=== PATIENT | female | born 1955 | race African-American/Black ===

== ENCOUNTER → 2016-06-01 | Outpatient (CLI) | payer MEDICARE, MEDICAID | LOC: RAD 11:02 | PROVIDERS: ATTEND Nurse Practitioner Family | DX: R56.9 Unspecified convulsions (principal); R51 Headache; G47.33 Obstructive sleep apnea (adult) (pediatric) | CPT/HCPCS: 70553; A9577 ==

== ENCOUNTER → 2016-06-14 | Outpatient (CLI) | payer MEDICARE, MEDICAID ==
[2016-06-14 16:40] LABS: FREE T3 3.48 pg/mL (2.77-5.27)
== END ==
LOC: OD 13:58
PROVIDERS: ATTEND Specialist
DX: E03.9 Hypothyroidism, unspecified (principal); E16.2 Hypoglycemia, unspecified
CPT/HCPCS: 36415; 84439; 84443; 84481

== ENCOUNTER → 2016-07-18 | Outpatient (CLI) | payer MEDICARE, MEDICAID | LOC: WI 13:45 | PROVIDERS: ATTEND Physician Assistant | DX: Z78.0 Asymptomatic menopausal state (principal) | CPT/HCPCS: 77080 ==

== ENCOUNTER → 2016-07-25 | Outpatient (CLI) | payer MEDICARE, MEDICAID | LOC: RAD 09:52 | PROVIDERS: ATTEND Obstetrics & Gynecology | DX: R10.2 Pelvic and perineal pain (principal) | CPT/HCPCS: 74177; 82565 ==

== ENCOUNTER 2016-09-04 12:25 | Emergency (ER) | payer MEDICARE, MEDICAID ==
[2016-09-04] MEDS ORDERED: ACETAMINOPHEN 325 MG TABLET PO ONE (12:45)
[2016-09-04] MEDS ORDERED: MECLIZINE HCL 25 MG TABLET PO ONE (12:45)
--- NOTE | 2016-09-04 12:46 | ER Document Report ---
ED Medical Screen (RME) - General Chief Complaint: Dizziness Stated Complaint: HEADACHE, DIZZINESS Time seen by provider: 12:45 Mode of Arrival: Ambulatory Information source: Patient Notes: This is a 61-year-old female with a history of hypertension and asthma and migraines who presents to the emergency room with a headache and dizziness. Patient states she awoke with symptoms. She denies any focal weakness, slurred speech or facial asymmetry. Allergies: Ibuprofen, Aleve, morphine, oxycodone. Primary care physician: Rain cardozo Past surgical history: Cholecystectomy TRAVEL OUTSIDE OF THE [place] IN LAST 30 DAYS: No - Related Data Allergies/Adverse Reactions: aspirin [Aspirin] Allergy (Mild, Verified 09/04/16 12:37) Hives ibuprofen [Ibuprofen] Allergy (Mild, Verified 09/04/16 12:37) nausea/vomiting metaxalone [From Skelaxin] Allergy (Mild, Verified 09/04/16 12:37) Hallucinations morphine [Morphine] Allergy (Mild, Verified 09/04/16 12:37) Hallucinations naproxen [From Naprosyn] Allergy (Mild, Verified 09/04/16 12:37) Dizziness oxycodone [Oxycodone] Allergy (Mild, Verified 09/04/16 12:37) Hallucinations oxycodone HCl [From Percocet] Allergy (Mild, Verified 09/04/16 12:37) Hallucinations Past Medical History - Social History Frequency of alcohol use: None Drug Abuse: None - Past Medical History Cardiac Medical History: Reports: Hx Hypercholesterolemia, Hx Hypertension - medicated Denies: Hx Heart Attack Pulmonary Medical History: Reports: Hx Asthma - medicated prn Neurological Medical History: Reports: Hx Migraine. Denies: Hx Cerebrovascular Accident, Hx Seizures Renal/ Medical History: Denies: Hx Peritoneal Dialysis GI Medical History: Denies: Hx Hepatitis, Hx Hiatal Hernia, Hx Ulcer Infectious Medical History: Denies: Hx Hepatitis Past Surgical History: Reports: Hx Cholecystectomy. Denies: Hx Hysterectomy, Hx Mastectomy, Hx Open Heart Surgery, Hx Pacemaker Physical Exam - Vital signs Vitals: Temp Pulse Resp BP Pulse Ox 97.9 F 73 20 122/69 97 09/04/16 12:38 09/04/16 12:38 09/04/16 12:38 09/04/16 12:38 09/04/16 12:38 Course - Vital Signs Vital signs: Temp Pulse Resp BP Pulse Ox 97.9 F 73 20 122/69 97 09/04/16 12:38 09/04/16 12:38 09/04/16 12:38 09/04/16 12:38 09/04/16 12:38
[2016-09-04 13:15] LABS: ABSOLUTE MONOCYTES (AUTO) 0.3 10^3/uL (0.1-1.4); ABSOLUTE NEUT (AUTO) 1.8 10^3/uL (1.7-8.2); BASOPHILS % (AUTO) 1.1 % (0-2); EOSINOPHILS % (AUTO) 0.8 % (0-6); HEMATOCRIT 40.4 % (36.0-47.0); HEMOGLOBIN 13.3 g/dL (12.0-15.5); HGB HCT DIFFERENCE -0.5; LYMPHOCYTES % (AUTO) 31.5 % (13-45); MEAN CORPUSCULAR HEMOGLOBIN 29.2 pg (27.0-33.4); MEAN CORPUSCULAR HGB CONC 32.9 g/dL (32.0-36.0); MEAN CORPUSCULAR VOLUME 89 fl (80-97); MONOCYTES % (AUTO) 8.6 % (3-13); RED BLOOD COUNT 4.56 10^6/uL (3.72-5.28); RED CELL DISTRIBUTION WIDTH 13.5 % (11.5-14.0)
[2016-09-04 13:27] LABS: APPEARANCE,URINE SLIGHTLY-CLOUDY; BILIRUBIN,URINE NEGATIVE (NEGATIVE); GLUCOSE, URINE NEGATIVE (NEGATIVE); KETONES,URINE NEGATIVE (NEGATIVE); LEUKOCYTE ESTERASE,URINE TRACE (NEGATIVE); NITRITE,URINE NEGATIVE (NEGATIVE); PROTEIN,URINE NEGATIVE (NEGATIVE); URINE SPECIFIC GRAVITY 1.026; UROBILINOGEN,URINE NEGATIVE mg/dL (<2.0)
[2016-09-04 13:31] LABS: ALANINE AMINOTRANSFERASE 32 U/L (9-52); ALBUMIN 3.9 g/dL (3.5-5.0); ALKALINE PHOSPHATASE 98 U/L (38-126); ANION GAP 11 (5-19); ASPARTATE AMINO TRANSFERASE 22 U/L (14-36); BILIRUBIN,DIRECT 0.3 mg/dL (0.0-0.4); BILIRUBIN,TOTAL 0.4 mg/dL (0.2-1.3); BLOOD UREA NITROGEN 16 mg/dL (7-20); CALCIUM 9.6 mg/dL (8.4-10.2); CARBON DIOXIDE 24 mmol/L (22-30); CHLORIDE 108 mmol/L (98-107); CREATININE RESULT 0.74 mg/dL (0.52-1.25); GLUCOSE 85 mg/dL (75-110); POTASSIUM 4.3 mmol/L (3.6-5.0); SODIUM 143.2 mmol/L (137-145); TOTAL PROTEIN 6.8 g/dL (6.3-8.2)
--- NOTE | 2016-09-04 15:21 | ER Document Report ---
ED General - General Chief Complaint: Dizziness Stated Complaint: HEADACHE, DIZZINESS Mode of Arrival: Ambulatory Information source: Patient Notes: 61-year-old female with a history of hypertension and asthma and migraines who presents to the emergency room with a headache and dizziness. Patient states she awoke with symptoms. She denies any focal weakness, slurred speech or facial asymmetry. Patient denies any fevers or chills, denies any nausea or vomiting. Patient notes symptoms worsened with movement of the head Patient notes headache is similar to her previous headaches denies any new concerns with a headache TRAVEL OUTSIDE OF THE [place] IN LAST 30 DAYS: No - HPI Onset: This morning Onset/Duration: Persistent Quality of pain: Achy Severity: Mild Pain Level: 1 Associated symptoms: Headache, Other Exacerbated by: Movement Relieved by: Denies Similar symptoms previously: Yes Recently seen / treated by doctor: Yes - Related Data Allergies/Adverse Reactions: aspirin [Aspirin] Allergy (Mild, Verified 09/04/16 12:37) Hives ibuprofen [Ibuprofen] Allergy (Mild, Verified 09/04/16 12:37) nausea/vomiting metaxalone [From Skelaxin] Allergy (Mild, Verified 09/04/16 12:37) Hallucinations morphine [Morphine] Allergy (Mild, Verified 09/04/16 12:37) Hallucinations naproxen [From Naprosyn] Allergy (Mild, Verified 09/04/16 12:37) Dizziness oxycodone [Oxycodone] Allergy (Mild, Verified 09/04/16 12:37) Hallucinations oxycodone HCl [From Percocet] Allergy (Mild, Verified 09/04/16 12:37) Hallucinations Past Medical History - General Information source: Patient - Social History Smoking Status: Never Smoker Cigarette use (# per day): No Chew tobacco use (# tins/day): No Smoking Education Provided: No Frequency of alcohol use: None Drug Abuse: None Family History: Reviewed & Not Pertinent Patient has suicidal ideation: No Patient has homicidal ideation: No - Past Medical History Cardiac Medical History: Reports: Hx Hypercholesterolemia, Hx Hypertension - medicated Denies: Hx Heart Attack Pulmonary Medical History: Reports: Hx Asthma - medicated prn Neurological Medical History: Reports: Hx Migraine. Denies: Hx Cerebrovascular Accident, Hx Seizures Renal/ Medical History: Denies: Hx Peritoneal Dialysis GI Medical History: Denies: Hx Hepatitis, Hx Hiatal Hernia, Hx Ulcer Infectious Medical History: Denies: Hx Hepatitis Past Surgical History: Reports: Hx Cholecystectomy. Denies: Hx Hysterectomy, Hx Mastectomy, Hx Open Heart Surgery, Hx Pacemaker Review of Systems - Review of Systems Notes: REVIEW OF SYSTEMS: CONSTITUTIONAL : Denies fever, chills, or sweats. Denies recent illness. EENT: Denies eye, ear, throat, or mouth pain or symptoms. Denies nasal or sinus congestion or discharge. Denies throat, tongue, or mouth swelling or difficulty swallowing. CARDIOVASCULAR: Denies chest pain. Denies palpitations or racing or irregular heart beat. Denies ankle edema. RESPIRATORY: Denies cough, cold, or chest congestion. Denies shortness of breath, difficulty breathing, or wheezing. GASTROINTESTINAL: Denies abdominal pain or distention. Denies nausea, vomiting , or diarrhea. Denies blood in vomitus, stools, or per rectum. Denies black, tarry stools. Denies constipation. GENITOURINARY: Denies difficulty urinating, painful urination, burning, frequency, blood in urine, or discharge. FEMALE GENITOURINARY: Denies vaginal bleeding, heavy or abnormal periods, irregular periods. Denies vaginal discharge or odor. MUSCULOSKELETAL: Denies back or neck pain or stiffness. Denies joint pain or swelling. SKIN: Denies rash, lesions or sores. HEMATOLOGIC : Denies easy bruising or bleeding. LYMPHATIC: Denies swollen, enlarged glands. NEUROLOGICAL: Admits to vertigo and headache PSYCHIATRIC: Denies anxiety or stress. Denies depression, suicidal ideation, or homicidal ideation. ALL OTHER SYSTEMS REVIEWED AND NEGATIVE. Dictation was performed using [employer] voice recognition software PHYSICAL EXAMINATION: GENERAL: Well-appearing, well-nourished and in no acute distress. HEAD: Atraumatic, normocephalic. EYES: Pupils equal round and reactive to light, extraocular movements intact, conjunctiva are normal. ENT: Nares patent, oropharynx clear without exudates. Moist mucous membranes. NECK: Normal range of motion, supple without lymphadenopathy LUNGS: Breath sounds clear to auscultation bilaterally and equal. No wheezes rales or rhonchi. HEART: Regular rate and rhythm without murmurs ABDOMEN: Soft, nontender, nondistended abdomen. No guarding, no rebound. No masses appreciated. Female : deferred Musculoskeletal: Normal range of motion, no pitting or edema. No cyanosis. NEUROLOGICAL: Cranial nerves grossly intact. Normal speech, normal gait. Normal sensory, motor exams PSYCH: Normal mood, normal affect. SKIN: Warm, Dry, normal turgor, no rashes or lesions noted. Physical Exam - Vital signs Vitals: Temp Pulse Resp BP Pulse Ox 97.9 F 73 20 122/69 97 09/04/16 12:38 09/04/16 12:38 09/04/16 12:38 09/04/16 12:38 09/04/16 12:38 Course - Re-evaluation Re-evalutation: 09/04/16 15:21 Patient was treated for her symptoms states she feels much better, I will watch her a bit longer as she otherwise looks extremely well. Workup noted no acute abnormality 09/04/16 15:56 Patient notes symptoms have completely resolved she wishes to be discharged home , patient will be discharged with the understanding that she return immediately if there are any other concerns or any other issues After performing a Medical Screening Examination, I estimate there is LOW risk for INTRACRANIAL HEMORRHAGE, ISCHEMIC CVA, MALIGNANT DYSRHYTHMIA, ACUTE CORONARY SYNDROME, MENINGITIS, PULMONARY EMBOLISM, or SEPSIS thus I consider the discharge disposition reasonable. I have reevaluated this patient multiple times and no significant life threatening changes are noted. The patient and I have discussed the diagnosis and risks, and we agree with discharging home with close follow-up with the understanding that symptoms and presentations can change. We also discussed returning to the Emergency Department immediately if new or worsening symptoms occur. We have discussed the symptoms which are most concerning (e.g., changing or worsening pain, weakness, vomiting, fever) that necessitate immediate return. - Vital Signs Vital signs: Temp Pulse Resp BP Pulse Ox 97.9 F 73 20 122/69 97 09/04/16 12:38 09/04/16 12:38 09/04/16 12:38 09/04/16 12:38 09/04/16 12:38 - Laboratory Result Diagrams: 09/04/16 12:45 09/04/16 12:45 Laboratory results interpreted by me: 09/04/16 09/04/16 09/04/16 12:45 12:45 12:45 WBC 3.0 L Chloride 108 H Ur Leukocyte Esterase TRACE H Discharge - Discharge Clinical Impression: Dizziness Migraine headache Qualifiers: Migraine type: unspecified Status migrainosus presence: without status migrainosus Intractability: not intractable Qualified Code(s): G43.909 - Migraine, unspecified, not intractable, without status migrainosus Condition: Stable Disposition: HOME, SELF-CARE Instructions: Dizziness ([facility]) Prescriptions: Meclizine HCl [Antivert 25 mg Tablet] 25 mg PO TID PRN #21 tablet PRN Reason: Referrals: MARISABEL NEWTON PA-C [Primary Care Provider] - Follow up in 3-5 days
[2016-09-04 16:44] VITALS: BP 116/73
== END 2016-09-04 16:48 | disposition home or self-care (01) ==
LOC: ER 12:25
DX: R42 Dizziness and giddiness (principal); G43.909 Migraine, unspecified, not intractable, without status migrainosus; I10 Essential (primary) hypertension; J45.909 Unspecified asthma, uncomplicated; E78.00 Pure hypercholesterolemia, unspecified; Z88.6 Allergy status to analgesic agent; Z90.49 Acquired absence of other specified parts of digestive tract
CPT/HCPCS: 99284; 36415; 85025; 80053; 81001; A9270 ×2

== ENCOUNTER 2016-10-01 18:15 | Emergency (ER) | payer MEDICARE, MEDICAID ==
--- NOTE | 2016-10-01 19:03 | ER Document Report ---
ED Medical Screen (RME) - General Mode of Arrival: Wheelchair Information source: Patient TRAVEL OUTSIDE OF THE [place] IN LAST 30 DAYS: No - HPI Patient complains to provider of: pain in both legs; vaginal bleeding Onset: Last week - pt. with several day h/o pain and swelling in both legs ; also vaginal bleeding which started last week after not having a menstral period for many years <GUSTAVO COLON - Last Filed: 10/01/16 19:01> <KATHARINA SHRESTHA - Last Filed: 10/01/16 22:23> - General Chief Complaint: Vaginal Bleeding Stated Complaint: LEG PAIN Time Seen by Provider: 10/01/16 18:57 - Related Data Allergies/Adverse Reactions: aspirin [Aspirin] Allergy (Mild, Verified 10/01/16 18:42) Hives ibuprofen [Ibuprofen] Allergy (Mild, Verified 10/01/16 18:42) nausea/vomiting metaxalone [From Skelaxin] Allergy (Mild, Verified 10/01/16 18:42) Hallucinations morphine [Morphine] Allergy (Mild, Verified 10/01/16 18:42) Hallucinations naproxen [From Naprosyn] Allergy (Mild, Verified 10/01/16 18:42) Dizziness oxycodone [Oxycodone] Allergy (Mild, Verified 10/01/16 18:42) Hallucinations oxycodone HCl [From Percocet] Allergy (Mild, Verified 10/01/16 18:42) Hallucinations Past Medical History - Social History Chew tobacco use (# tins/day): No Frequency of alcohol use: None Drug Abuse: None - Past Medical History Cardiac Medical History: Reports: Hx Hypercholesterolemia, Hx Hypertension - medicated Denies: Hx Heart Attack Pulmonary Medical History: Reports: Hx Asthma - medicated prn Neurological Medical History: Reports: Hx Migraine. Denies: Hx Cerebrovascular Accident, Hx Seizures Renal/ Medical History: Denies: Hx Peritoneal Dialysis GI Medical History: Denies: Hx Hepatitis, Hx Hiatal Hernia, Hx Ulcer Infectious Medical History: Denies: Hx Hepatitis Past Surgical History: Reports: Hx Cholecystectomy. Denies: Hx Hysterectomy, Hx Mastectomy, Hx Open Heart Surgery, Hx Pacemaker - Immunizations Hx Diphtheria, Pertussis, Tetanus Vaccination: Yes <GUSTAVO COLON - Last Filed: 10/01/16 19:01> Course - Laboratory Result Diagrams: 10/01/16 19:15 10/01/16 19:15 - Consults Dr. Hartmann Time consulted: 22:15 Consulted provider: follow-up in office - Call Monday morning for an appointment with Dr. Lester this week. <KATHARINA SHRESTHA - Last Filed: 10/01/16 22:23> - Vital Signs Vital signs: Temp Pulse Resp BP Pulse Ox 98.6 F 66 18 141/84 H 98 10/01/16 18:42 10/01/16 18:42 10/01/16 18:42 10/01/16 18:42 10/01/16 18:42 - Laboratory Laboratory results interpreted by me: 10/01/16 19:15 WBC 3.9 L Doctor's Discharge <GUSTAVO COLON - Last Filed: 10/01/16 19:01> <KATHARINA SHRESTHA - Last Filed: 10/01/16 22:23> - Discharge Clinical Impression: Postmenopausal bleeding, Pain in both lower extremities Condition: Stable Disposition: HOME, SELF-CARE
[2016-10-01 19:29] LABS: ABSOLUTE LYMPHOCYTES (AUTO) 1.6 10^3/uL (0.5-4.7); ABSOLUTE MONOCYTES (AUTO) 0.2 10^3/uL (0.1-1.4); BASOPHILS % (AUTO) 0.3 % (0-2); HEMATOCRIT 40.7 % (36.0-47.0); HEMOGLOBIN 13.2 g/dL (12.0-15.5); HGB HCT DIFFERENCE -1.1; LYMPHOCYTES % (AUTO) 40.9 % (13-45); MEAN CORPUSCULAR HEMOGLOBIN 28.5 pg (27.0-33.4); MEAN CORPUSCULAR HGB CONC 32.4 g/dL (32.0-36.0); MEAN CORPUSCULAR VOLUME 88 fl (80-97); MONOCYTES % (AUTO) 6.3 % (3-13); RED BLOOD COUNT 4.62 10^6/uL (3.72-5.28); SEGMENTED NEUTROPHILS % (AUTO) 51.5 % (42-78); WHITE BLOOD COUNT 3.9 10^3/uL (4.0-10.5)
[2016-10-01 19:51] LABS: ALANINE AMINOTRANSFERASE 29 U/L (9-52); ALKALINE PHOSPHATASE 104 U/L (38-126); ANION GAP 9 (5-19); ASPARTATE AMINO TRANSFERASE 24 U/L (14-36); BILIRUBIN,DIRECT 0.3 mg/dL (0.0-0.4); BILIRUBIN,TOTAL 0.3 mg/dL (0.2-1.3); BLOOD UREA NITROGEN 18 mg/dL (7-20); CALCIUM 9.5 mg/dL (8.4-10.2); CARBON DIOXIDE 27 mmol/L (22-30); CHLORIDE 104 mmol/L (98-107); CREATININE RESULT 0.85 mg/dL (0.52-1.25); GLUCOSE 88 mg/dL (75-110); POTASSIUM 4.1 mmol/L (3.6-5.0); SODIUM 140.4 mmol/L (137-145); TOTAL PROTEIN 7.3 g/dL (6.3-8.2)
--- NOTE | 2016-10-01 20:18 | RADIOLOGY REPORT (SQ) ---
EXAM DESCRIPTION: VENOUS BILATERAL LOWER COMPLETED DATE/TIME: 10/01/2016 8:07 pm REASON FOR STUDY: pain and swelling in bilateral LE's COMPARISON: None. TECHNIQUE: Dynamic and static moran scale and color images acquired of both lower extremity venous sy stems. Selected spectral images acquired with additional compression and augmentation maneuvers. Imag es stored on PACS. LIMITATIONS: None. FINDINGS: RIGHT LEG COMMON FEMORAL AND FEMORAL: Normal phasicity, compression and augmentation. No visualized echogenic m aterial on moran scale. No defects on color images. POPLITEAL: Normal compression and augmentation. No visualized echogenic material on moran scale. No de fects on color images. CALF VESSELS: Normal compression and augmentation. No visualized echogenic material on moran scale. No defects on color image. GSV AND SSV: Normal compression. No visualized echogenic material on moran scale. No defects on color images. ANY DEEP VENOUS INSUFFICIENCY: Not evaluated. ANY EVIDENCE OF POPLITEAL CYST: No. OTHER: No other significant finding. LEFT LEG COMMON FEMORAL AND FEMORAL: Normal phasicity, compression and augmentation. No visualized echogenic m aterial on moran scale. No defects on color images. POPLITEAL: Normal compression and augmentation. No visualized echogenic material on moran scale. No de fects on color images. CALF VESSELS: Normal compression and augmentation. No visualized echogenic material on moarn scale. No defects on color images. GSV AND SSV: Normal compression. No visualized echogenic material on moran scale. No defects on color images. ANY DEEP VENOUS INSUFFICIENCY: Not evaluated. ANY EVIDENCE POPLITEAL CYST: No. OTHER: No other significant finding. IMPRESSION: NO EVIDENCE DVT OR SVT IN EITHER LEG. TECHNICAL DOCUMENTATION: JOB ID: [id number] [employer]- All Rights Reserved
[2016-10-01 22:19] LABS: ADD ON TESTING BLD IN LAB ACKNOWLEDGE
--- NOTE | 2016-10-01 22:20 | ER Document Report ---
ED General - General Mode of Arrival: Wheelchair Information source: Patient TRAVEL OUTSIDE OF THE [place] IN LAST 30 DAYS: No - HPI Patient complains to provider of: Bilateral calf tenderness and vaginal bleeding Onset: Last week Associated symptoms: Other - see notes above <TONYA VILLEGAS - Last Filed: 10/01/16 22:25> <HENRIETTAKATHARINA - Last Filed: 10/01/16 22:52> - General Chief Complaint: Vaginal Bleeding Stated Complaint: LEG PAIN Time Seen by Provider: 10/01/16 18:57 Notes: 61 year old female with history of hypertension and unmedicated hyperlipidemia presents to the ED complaining of intermittent bilateral calf tenderness and vaginal bleeding that started last week. Patient reports that the pain is exacerbated when walking and standing up and relieved when sitting. ED nursing notes state that the patient's vaginal bleeding started last weekend, stopped, and started again yesterday. Patient had a CT pelvis performed in June 2016 secondary to pelvic pain which was normal. Patient has also followed up with her [facility] ATTORNEY, Dr. Lr, for pelvic pain a few months ago which resulted in no significant findings. Patient's last menstrual period was 19 years ago. PCP: Rain Reyna [facility]: Dr. Lr (TONYA VILLEGAS) - Related Data Allergies/Adverse Reactions: aspirin [Aspirin] Allergy (Mild, Verified 10/01/16 18:42) Hives ibuprofen [Ibuprofen] Allergy (Mild, Verified 10/01/16 18:42) nausea/vomiting metaxalone [From Skelaxin] Allergy (Mild, Verified 10/01/16 18:42) Hallucinations morphine [Morphine] Allergy (Mild, Verified 10/01/16 18:42) Hallucinations naproxen [From Naprosyn] Allergy (Mild, Verified 10/01/16 18:42) Dizziness oxycodone [Oxycodone] Allergy (Mild, Verified 10/01/16 18:42) Hallucinations oxycodone HCl [From Percocet] Allergy (Mild, Verified 10/01/16 18:42) Hallucinations Past Medical History - General Information source: Patient - Social History Smoking Status: Never Smoker Chew tobacco use (# tins/day): No Frequency of alcohol use: None Drug Abuse: None Family History: Reviewed & Not Pertinent Patient has suicidal ideation: No Patient has homicidal ideation: No - Past Medical History Cardiac Medical History: Reports: Hx Hypercholesterolemia, Hx Hypertension - medicated Pulmonary Medical History: Reports: Hx Asthma - medicated prn Neurological Medical History: Reports: Hx Migraine. Denies: Hx Cerebrovascular Accident, Hx Seizures Renal/ Medical History: Denies: Hx Peritoneal Dialysis GI Medical History: Denies: Hx Hepatitis, Hx Hiatal Hernia, Hx Ulcer Infectious Medical History: Denies: Hx Hepatitis Past Surgical History: Reports: Hx Cholecystectomy. Denies: Hx Hysterectomy, Hx Mastectomy, Hx Open Heart Surgery, Hx Pacemaker - Immunizations Hx Diphtheria, Pertussis, Tetanus Vaccination: Yes <TONYA VILLEGAS - Last Filed: 10/01/16 22:25> Review of Systems - Review of Systems Constitutional: No symptoms reported EENT: No symptoms reported Cardiovascular: No symptoms reported Respiratory: No symptoms reported Gastrointestinal: No symptoms reported Genitourinary: No symptoms reported Female Genitourinary: See HPI, Vaginal bleeding Musculoskeletal: See HPI, Other - bilateral calf tenderness Skin: No symptoms reported Hematologic/Lymphatic: No symptoms reported Neurological/Psychological: No symptoms reported -: Yes All other systems reviewed and negative <TONYA VILLEGAS Last Filed: 10/01/16 22:25> Physical Exam - General General appearance: Alert In distress: None - HEENT Head: Normocephalic, Atraumatic Eyes: Normal Extraocular movements intact: Yes Pupils: PERRL - Respiratory Respiratory status: No respiratory distress Breath sounds: Normal - Cardiovascular Rhythm: Regular Heart sounds: Normal auscultation - Abdominal Inspection: Obese Distension: No distension Tenderness: Nontender - Back Back: Normal - Extremities General upper extremity: Normal inspection, Normal ROM General lower extremity: No: Normal inspection - see calf exam below Calf: Tender - Tenderness to palpation of the medial bilateral calf, proximally. Venous doppler study performed was negative for DVT and SVT.. No: Normal - Neurological Neuro grossly intact: Yes - Psychological Associated symptoms: Normal affect, Normal mood - Skin Skin Temperature: Warm Skin Moisture: Dry Skin Color: Normal <TONYA VILLEGAS - Last Filed: 10/01/16 22:25> Course - Laboratory Result Diagrams: 10/01/16 19:15 10/01/16 19:15 <SAURABH VILLEGASUR - Last Filed: 10/01/16 22:25> - Laboratory Result Diagrams: 10/01/16 19:15 10/01/16 19:15 <KATHARINA SHRESTHA - Last Filed: 10/01/16 22:52> - Re-evaluation Re-evalutation: 10/01/16 22:49 Patient is not on statins. The total CK is quite low. The lower extremity discomfort improved with rest and elevation and is worse with walking. Venous Dopplers were done earlier and were negative for SVT and DVT. She will call [facility] Monday to schedule an appointment for endometrial biopsy. (KATHARINA SHRESTHA) - Vital Signs Vital signs: Temp Pulse Resp BP Pulse Ox 98.6 F 66 18 141/84 H 98 10/01/16 18:42 10/01/16 18:42 10/01/16 18:42 10/01/16 18:42 10/01/16 18:42 - Laboratory Laboratory results interpreted by me: 10/01/16 19:15 WBC 3.9 L Discharge <TONYA VILLEGAS - Last Filed: 10/01/16 22:25> <KATHARINA SHRESTHA - Last Filed: 10/01/16 22:52> - Discharge Clinical Impression: Postmenopausal vaginal bleeding, Bilateral lower extremity pain Condition: Stable Disposition: HOME, SELF-CARE Additional Instructions: Call [facility] Monday to schedule appointment with Dr. Lester. Tell the diabetes solutions specialist that Dr. Lester specifically requested you be assigned to her for endometrial biopsy. Take Tylenol for leg pain if needed. Elevate your legs and limit walking until they are feeling better. Follow-up with Rain reyna if your legs do not improve. Referrals: [facility] [Provider Group] - 10/03/16 (Call Monday for an appointment.) Scribe Attestation: 10/01/16 22:52 I personally performed the services described in the documentation, reviewed and edited the documentation which was dictated to the scribe in my presence, and it accurately records my words and actions. (KATHARINA SHRESTHA) Scribe Documentation - Scribe Written by Rik:: Rik Strauss, 10/01/2016 2231 acting as scribe for :: Henrietta <TONYA VILLEGAS - Last Filed: 10/01/16 22:25>
[2016-10-01 22:25] LABS: CREATINE KINASE 114 U/L (30-135)
[2016-10-01 23:05] VITALS: BP 130/81
== END 2016-10-01 23:05 | disposition home or self-care (01) ==
LOC: ER 18:15
DX: N95.0 Postmenopausal bleeding (principal); M79.662 Pain in left lower leg; M79.661 Pain in right lower leg; E78.00 Pure hypercholesterolemia, unspecified; J45.909 Unspecified asthma, uncomplicated; I10 Essential (primary) hypertension; Z88.6 Allergy status to analgesic agent; Z90.49 Acquired absence of other specified parts of digestive tract
CPT/HCPCS: 36415; 80053; 82550; 85025; 93970; 99284

== ENCOUNTER 2016-10-22 11:42 | Emergency (ER) | payer MEDICARE, MEDICAID ==
--- NOTE | 2016-10-22 13:14 | ER Document Report ---
ED Extremity Problem, Upper - General Chief Complaint: Shoulder Pain Stated Complaint: LEFT SHOULDER PAIN Time Seen by Provider: 10/22/16 13:00 Mode of Arrival: Ambulatory Information source: Patient Notes: 61-year-old female presents to ED for right shoulder pain for the last 2 weeks. She states she saw her primary doctor about a week or 2 ago and was told that she had some arthritis in the shoulder but her pain is not getting better. She states her primary doctor did not do an x-ray and she had fallen about a month ago and she wanted her shoulder reexamined. Has a history of asthma bronchitis migraines seizures with her last seizure began 30 years ago thyroid nodules and arthritis. TRAVEL OUTSIDE OF THE [place] IN LAST 30 DAYS: No - HPI Patient complains to provider of: Pain, Right, Shoulder Onset: Other - 2 weeks Recent injury: No Quality of pain: Achy, Sharp Severity of pain: Moderate, Persistent, Worse Pain Level: 4 Associated symptoms: None Exacerbated by: Movement, Exertion Relieved by: Rest, Positioning Similar symptoms previously: Yes Recently seen / treated by doctor: Yes - Related Data Allergies/Adverse Reactions: aspirin [Aspirin] Allergy (Mild, Verified 10/22/16 11:44) Hives ibuprofen [Ibuprofen] Allergy (Mild, Verified 10/22/16 11:44) nausea/vomiting metaxalone [From Skelaxin] Allergy (Mild, Verified 10/22/16 11:44) Hallucinations morphine [Morphine] Allergy (Mild, Verified 10/22/16 11:44) Hallucinations naproxen [From Naprosyn] Allergy (Mild, Verified 10/22/16 11:44) Dizziness oxycodone [Oxycodone] Allergy (Mild, Verified 10/22/16 11:44) Hallucinations oxycodone HCl [From Percocet] Allergy (Mild, Verified 10/22/16 11:44) Hallucinations Past Medical History - General Information source: Patient - Social History Smoking Status: Never Smoker Cigarette use (# per day): No Chew tobacco use (# tins/day): No Smoking Education Provided: No Frequency of alcohol use: None Drug Abuse: None Lives with: Family Family History: Reviewed & Not Pertinent Patient has suicidal ideation: No Patient has homicidal ideation: No - Past Medical History Cardiac Medical History: Reports: Hx Hypercholesterolemia, Hx Hypertension - medicated Pulmonary Medical History: Reports: Hx Asthma - medicated prn, Hx Bronchitis Neurological Medical History: Reports: Hx Migraine, Hx Seizures Endocrine Medical History: Reports: Other - Thyroid nodules Renal/ Medical History: Reports: None GI Medical History: Reports: Hx Colonoscopy Musculoskeltal Medical History: Reports Hx Arthritis Skin Medical History: Reports None Psychiatric Medical History: Reports: None Traumatic Medical History: Reports: None Infectious Medical History: Reports: None Past Surgical History: Reports: Hx Cholecystectomy - Immunizations Hx Diphtheria, Pertussis, Tetanus Vaccination: Yes Review of Systems - Review of Systems Constitutional: No symptoms reported EENT: No symptoms reported Cardiovascular: No symptoms reported Respiratory: No symptoms reported Gastrointestinal: No symptoms reported Genitourinary: No symptoms reported Female Genitourinary: No symptoms reported Musculoskeletal: Other - Shoulder pain Skin: No symptoms reported Hematologic/Lymphatic: No symptoms reported Neurological/Psychological: No symptoms reported Physical Exam - Vital signs Vitals: Temp Pulse Resp BP Pulse Ox 98.6 F 79 16 130/67 H 98 10/22/16 11:44 10/22/16 11:44 10/22/16 11:44 10/22/16 11:44 10/22/16 11:44 Interpretation: Normal - General General appearance: Appears well, Alert - HEENT Head: Normocephalic, Atraumatic Eyes: Normal Pupils: PERRL - Respiratory Respiratory status: No respiratory distress Chest status: Nontender Breath sounds: Normal Chest palpation: Normal - Cardiovascular Rhythm: Regular Heart sounds: Normal auscultation Murmur: No - Abdominal Inspection: Normal Distension: No distension Bowel sounds: Normal Tenderness: Nontender Organomegaly: No organomegaly - Back Back: Normal, Nontender - Extremities General upper extremity: Nontender, Normal color, Normal temperature General lower extremity: Normal inspection, Nontender, Normal color, Normal ROM , Normal temperature, Normal weight bearing. No: Oral's sign Shoulder: Tender, Limited ROM - due to pain - Neurological Neuro grossly intact: Yes Cognition: Normal Orientation: AAOx4 Jimmy Coma Scale Eye Opening: Spontaneous Jimmy Coma Scale Verbal: Oriented Jimmy Coma Scale Motor: Obeys Commands [place] Coma Scale Total: 15 Speech: Normal Motor strength normal: LUE, RUE, LLE, RLE Sensory: Normal - Psychological Associated symptoms: Normal affect, Normal mood - Skin Skin Temperature: Warm Skin Moisture: Dry Skin Color: Normal Course - Re-evaluation Re-evalutation: 10/22/16 14:13 Chest x-ray with patient and will discharge home to follow-up with primary doctor on Monday. - Vital Signs Vital signs: Temp Pulse Resp BP Pulse Ox 97.4 F 68 15 137/76 H 99 10/22/16 14:33 10/22/16 14:33 10/22/16 14:33 10/22/16 14:33 10/22/16 14:33 - Diagnostic Test Radiology reviewed: Image reviewed, Reports reviewed Discharge - Discharge Clinical Impression: Left shoulder pain Qualifiers: Chronicity: chronic Qualified Code(s): M25.512 - Pain in left shoulder Condition: Stable Disposition: HOME, SELF-CARE Instructions: Exercise Program for the Shoulder (OM) Additional Instructions: Arthralgia Arthralgia is pain in the joints. We use the word arthralgia to describe joint pain where there's no history of injury, no known joint disease, and the joints are normal to examination. Arthralgia can be a symptom of an acute illness, such as influenza, hepatitis, or serum sickness. Sometimes the joint pain comes before any other symptoms. Arthralgia can also be an early symptom of joint disease, such as rheumatoid arthritis or lupus. If arthralgia is accompanied by an acute illness that explains the joint pain, such as mononucleosis, no further testing needs to be done. When there's no clear reason for the pain, tests may be done to see if there's an inflammatory disease of the joints. The usual treatment is anti-inflammatory medication, such as ibuprofen. Joint aches can be soothed with a heating pad or hot compress. If joints remain painful more than a few days, you'll need testing and followup. Return if a joint becomes swollen, red, or severely painful. The medications prescribed by your doctor 2 weeks ago. Follow up with your doctor on Monday to let her know continuing to have pain. X-ray is negative no acute injuries no acute changes noted FOLLOW-UP CARE: If you have been referred to a physician for follow-up care, call the physician s office for an appointment as you were instructed or within the next two days. If you experience worsening or a significant change in your symptoms, notify the physician immediately or return to the Emergency Department at any time for re-evaluation. Forms: Elevated Blood Pressure Referrals: BUNDLE,MARISABEL, PA-C [Primary Care Provider] - 10/24/16
--- NOTE | 2016-10-22 13:48 | RADIOLOGY REPORT (SQ) ---
EXAM DESCRIPTION: SHOULDER RIGHT 2 OR MORE VIEWS COMPLETED DATE/TIME: 10/22/2016 1:37 pm REASON FOR STUDY: pain decreased mobility COMPARISON: None. NUMBER OF VIEWS: Three views. TECHNIQUE: Internal rotation, external rotation, and Y view images acquired of the right shoulder. LIMITATIONS: None. FINDINGS: MINERALIZATION: Normal. BONES: No acute fracture or dislocation. No worrisome bone lesions. No significant osteophytes. GLENOHUMERAL JOINT: No significant findings. ACROMIOCLAVICULAR JOINT: No large osteophytes. SOFT TISSUES: No calcifications. VISUALIZED RIBS, SPINE, AND LUNG: No other significant finding. OTHER: No other significant finding. IMPRESSION: NEGATIVE STUDY OF THE RIGHT SHOULDER. NO EXPLANATION FOR PAIN. TECHNICAL DOCUMENTATION: JOB ID: [id number] [employer]- All Rights Reserved
[2016-10-22 14:35] VITALS: BP 137/76
== END 2016-10-22 14:35 | disposition home or self-care (01) ==
LOC: ER 11:42
DX: M25.512 Pain in left shoulder (principal)
CPT/HCPCS: 99283

== ENCOUNTER → 2017-01-18 | Outpatient (CLI) | payer MEDICARE, MEDICAID | LOC: OD 12:34 | PROVIDERS: ATTEND Specialist | DX: G45.9 Transient cerebral ischemic attack, unspecified (principal); G62.9 Polyneuropathy, unspecified; M54.81 Occipital neuralgia | CPT/HCPCS: 36415; 83036 ==

== ENCOUNTER 2017-02-10 15:22 | Emergency (ER) | payer MEDICARE, MEDICAID ==
--- NOTE | 2017-02-10 16:14 | ER Document Report ---
ED Extremity Problem, Upper - General Chief Complaint: Hand Swelling Stated Complaint: LEFT ARM SWELLING Time Seen by Provider: 02/10/17 15:53 Mode of Arrival: Ambulatory Information source: Patient Notes: 61-year-old female presents to ED for complaint of left hand swelling that started last week. She also complains of pain in her wrist. She denies any injury any falls lifting anything twisted anything. States she was at her primary doctor's office yesterday complaining of pain in her left hand and left leg. States her primary doctor ordered her a Doppler that is to be done next week but did not order anything for her hand. Patient has faint full range of motion to her hand no actual swelling noted to the hand. TRAVEL OUTSIDE OF THE [place] IN LAST 30 DAYS: No - HPI Patient complains to provider of: Left, Hand Onset: Last week Recent injury: No Quality of pain: Achy Severity of pain: Mild Pain Level: 2 Associated symptoms: None Exacerbated by: Movement, Exertion Relieved by: Nothing Similar symptoms previously: Yes Recently seen / treated by doctor: Yes - Related Data Allergies/Adverse Reactions: aspirin [Aspirin] Allergy (Mild, Verified 02/10/17 15:26) Hives ibuprofen [Ibuprofen] Allergy (Mild, Verified 02/10/17 15:26) nausea/vomiting metaxalone [From Skelaxin] Allergy (Mild, Verified 02/10/17 15:26) Hallucinations morphine [Morphine] Allergy (Mild, Verified 02/10/17 15:26) Hallucinations naproxen [From Naprosyn] Allergy (Mild, Verified 02/10/17 15:26) Dizziness oxycodone [Oxycodone] Allergy (Mild, Verified 02/10/17 15:26) Hallucinations oxycodone HCl [From Percocet] Allergy (Mild, Verified 02/10/17 15:26) Hallucinations Past Medical History - General Information source: Patient - Social History Smoking Status: Never Smoker Cigarette use (# per day): No Chew tobacco use (# tins/day): No Smoking Education Provided: No Frequency of alcohol use: None Drug Abuse: None Lives with: Family Family History: Reviewed & Not Pertinent Patient has suicidal ideation: No Patient has homicidal ideation: No - Past Medical History Cardiac Medical History: Reports: Hx Hypercholesterolemia, Hx Hypertension - medicated Pulmonary Medical History: Reports: Hx Asthma - medicated prn, Hx Bronchitis EENT Medical History: Reports: None Neurological Medical History: Reports: Hx Migraine, Hx Seizures Endocrine Medical History: Reports: Other - Thyroid nodules Renal/ Medical History: Reports: None Malignancy Medical History: Reports: None GI Medical History: Reports: Hx Colonoscopy Musculoskeltal Medical History: Reports Hx Arthritis Skin Medical History: Reports None Psychiatric Medical History: Reports: None Traumatic Medical History: Reports: None Infectious Medical History: Reports: None Past Surgical History: Reports: Hx Cholecystectomy - Immunizations Hx Diphtheria, Pertussis, Tetanus Vaccination: Yes Review of Systems - Review of Systems Constitutional: No symptoms reported EENT: No symptoms reported Cardiovascular: No symptoms reported Respiratory: No symptoms reported Gastrointestinal: No symptoms reported Genitourinary: No symptoms reported Female Genitourinary: No symptoms reported Musculoskeletal: Other - Pain and swelling to the left hand according to patient Skin: No symptoms reported Hematologic/Lymphatic: No symptoms reported Neurological/Psychological: No symptoms reported -: Yes All other systems reviewed and negative Physical Exam - Vital signs Vitals: Temp Pulse Resp BP Pulse Ox 98.8 F 76 16 122/69 100 02/10/17 15:26 02/10/17 15:26 02/10/17 15:26 02/10/17 15:26 02/10/17 15:26 Interpretation: Normal - General General appearance: Appears well, Alert - HEENT Head: Normocephalic, Atraumatic Eyes: Normal Pupils: PERRL - Respiratory Respiratory status: No respiratory distress Chest status: Nontender Breath sounds: Normal Chest palpation: Normal - Cardiovascular Rhythm: Regular Heart sounds: Normal auscultation Murmur: No - Abdominal Inspection: Normal Distension: No distension Bowel sounds: Normal Tenderness: Nontender Organomegaly: No organomegaly - Back Back: Normal, Nontender - Extremities General upper extremity: Normal inspection, Normal color, Normal ROM, Normal temperature General lower extremity: Normal inspection, Nontender, Normal color, Normal ROM , Normal temperature, Normal weight bearing. No: Oral's sign Wrist: Tender. No: Abrasion, Axial load of thumb pain, Deformity, Dislocation, Ecchymosis, Instability, Laceration, Limited ROM, Navicular tenderness Hand: Tender, No evidence of human bite, No evidence of FB. No: Abrasion, Deformity, Dislocation, Ecchymosis, Instability, Laceration, Nail injury, Swelling, Tendon deficit - Neurological Neuro grossly intact: Yes Cognition: Normal Orientation: AAOx4 Jimmy Coma Scale Eye Opening: Spontaneous [place] Coma Scale Verbal: Oriented Jimmy Coma Scale Motor: Obeys Commands [place] Coma Scale Total: 15 Speech: Normal Motor strength normal: LUE, RUE, LLE, RLE Sensory: Normal - Psychological Associated symptoms: Normal affect, Normal mood - Skin Skin Temperature: Warm Skin Moisture: Dry Skin Color: Normal Course - Re-evaluation Re-evalutation: 02/10/17 17:36 X-ray report discussed with patient and family. Written report given to patient to follow-up with her primary doctor. Patient was treated with Tylenol for her discomfort. Patient instructed to elevate and ice hand for her discomfort. - Vital Signs Vital signs: Temp Pulse Resp BP Pulse Ox 98.9 F 72 18 129/73 H 99 02/10/17 17:51 02/10/17 17:51 02/10/17 17:51 02/10/17 17:51 02/10/17 17:51 - Diagnostic Test Radiology reviewed: Image reviewed, Reports reviewed Discharge - Discharge Clinical Impression: Left hand pain Condition: Stable Disposition: HOME, SELF-CARE Additional Instructions: You were seen today for left hand pain with no injuries that she remember. Your x-ray was negative there is no acute fractures. There is no obvious swelling to the hand. You were treated with Tylenol in the emergency room and you can take this safely at home for your pain. Acetaminophen Acetaminophen may be taken for pain relief or fever control. It's much safer than aspirin, offering a wider range of "safe" dosages. It is safe during . Some brand names are Tylenol, Panadol, Datril, Anacin 3, Tempra, and Liquiprin. Acetaminophen can be repeated every four hours. The following are maximum recommended dosages: WEIGHT Dose Drops Elixir Chewable( 80mg) (LBS.) drprs=droppers tsp=teaspoon 6 40 mg .4 ml (1/2) 6-11 80 mg .8 ml (full) 1/2 tsp 1 tab 12-16 120 mg 1 1/2 drprs 3/4 tsp 1 1/2 tabs 17-23 160 mg 2 drprs 1 tsp 2 tabs 24-30 240 mg 3 drprs 1 1/2 tsp 3 tabs 30-35 320 mg 2 tsp 4 tabs 36-41 360 mg 2 1/4 tsp 4 1 /2 tabs 42-47 400 mg 2 1/2 tsp 5 tabs 48-53 480 mg 3 tsp 6 tabs 54-59 520 mg 3 1/4 tsp 6 1 /2 tabs 60-64 560 mg 3 1/2 tsp 7 tabs 65-70 600 mg 3 3/4 tsp 7 1 /2 tabs 71-76 640 mg 4 tsp 8 tabs 77-82 720 mg 4 1/2 tsp 9 tabs 83-88 800 mg 5 tsp 10 tabs >89 pounds or adults 650 mg to 900 mg Acetaminophen can be repeated every four hours. Maximum daily dose not to exceed 4000 mg. These maximum recommended dosages are slightly higher than the dosages written on the product container, but these dosages are very safe and well below the toxic dosage for acetaminophen. ICE & ELEVATION: Apply ice packs frequently against the painful area. Many different schedules are recommended, such as "20 minutes on, 20 minutes off" or "one hour ice, two hours rest." If you need to work, you may need to go longer between ice treatments. You should plan to have the area ice packed AT LEAST one- fourth of the time. The ice should be applied over the wrap, tape, or splint, or over a layer of cloth -- not directly against the skin. Some ice bags have a built-in cloth and can be put directly on the skin. Your injured part should be elevated as much as possible over the next 48 hours. Try to keep the injury above the level of the heart. Avoid use of the injured area. Elevation and rest will decrease the swelling. FOLLOW-UP CARE: If you have been referred to a physician for follow-up care, call the physician s office for an appointment as you were instructed or within the next two days. If you experience worsening or a significant change in your symptoms, notify the physician immediately or return to the Emergency Department at any time for re-evaluation. Referrals: MARISABEL NEWTON PA-C [Primary Care Provider] - Follow up as needed
--- NOTE | 2017-02-10 17:00 | RADIOLOGY REPORT (SQ) ---
EXAM DESCRIPTION: HAND LEFT 3 VIEWS COMPLETED DATE/TIME: 02/10/2017 4:43 pm REASON FOR STUDY: left hand pain and swelling COMPARISON: None. EXAM PARAMETERS: NUMBER OF VIEWS: Three views. TECHNIQUE: AP, lateral and oblique radiographic images acquired of the left hand. LIMITATIONS: None. FINDINGS: MINERALIZATION: Normal. BONES: No acute fracture or dislocation. No worrisome bone lesions. No significant osteophytes. JOINTS: No erosions. No pooja-articular osteopenia. No chondrocalcinosis. SOFT TISSUES: No swelling. No calcifications. OTHER: No other significant finding. IMPRESSION: NEGATIVE STUDY OF THE LEFT HAND. NO ACUTE POST-TRAUMATIC CHANGES. NO EXPLANATION FOR ORION N. TECHNICAL DOCUMENTATION: JOB ID: [id number] [employer] All Rights Reserved
[2017-02-10] MEDS ORDERED: ACETAMINOPHEN 325 MG TABLET PO ONE (17:31)
[2017-02-10 17:52] VITALS: BP 129/73
== END 2017-02-10 17:45 | disposition home or self-care (01) ==
LOC: ER 15:22
DX: M79.89 Other specified soft tissue disorders (principal); E78.00 Pure hypercholesterolemia, unspecified; I10 Essential (primary) hypertension; Z88.6 Allergy status to analgesic agent; Z90.49 Acquired absence of other specified parts of digestive tract
CPT/HCPCS: 99283; 73130; A9270

== ENCOUNTER → 2017-02-15 | Outpatient (CLI) | payer MEDICARE, MEDICAID ==
--- NOTE | 2017-02-16 16:30 | XCELERA REPORT ---
[address] [address] Lower Extremity Arterial Evaluation Name: EDINSON AGUILAR Age: 61 yrs Gender: Female : 1955 Patient Status: Outpatient Patient Location: Study Date: 02/15/2017 11:11 AM Procedure: A color flow and duplex scan of the lower extremity arteries was performed bilaterally with velocity and waveform anaylsis. Ankle brachial indicies performed. Reason For Study: R52 PAIN Ordering Physician: MARISABEL NEWTON PA-C Performed By: Clemente Bradford Measurements and Calculations Right Left SALESPERSON NEW CARS PSV 159.8 146.7 cm/sec Prox PFA PSV -111.8 -94.9 cm/sec Dist SFA PSV -101.2 -105.6 cm/sec Dist Pop A PSV 91.1 89.9 cm/sec Dist MACY PSV 71.7 66.4 cm/sec Dist DIPLOMATIC OFFICER PSV -88.9 72.5 cm/sec Mehdi Pedis PSV 62.9 74.6 cm/sec Right Side Arterial Evaluation Normal velocity and triphasic waveforms noted from the Common Femoral artery to the Posterior Tibial artery . Biphasic with well preserved velocity in the Anterior Tibia artery. 0-19 % stenosis noted . In the Anterior Tibial artery. Ankle Brachial index is 1.36. Left Side Arterial Evaluation Normal velocity and triphasic waveforms noted from the Common Femoral artery to the Popliteal artery . Biphasic with well preserved velocities in the infrageniculate vessels . 0-19 % stenosis noted .At the infrageniculate level. Ankle Brachial index is 1.29. Interpretation Summary Mild hemodynamically significant lesions in the bilateral lower extremities, on duplex imaging, at rest. : MARISABEL NEWTON PA-C > Jonathan Castrejon
== END ==
LOC: SP 10:43
PROVIDERS: ATTEND Physician Assistant
DX: R52 Pain, unspecified (principal)
CPT/HCPCS: 93925

== ENCOUNTER 2017-06-26 14:26 | Emergency (ER) | payer MEDICARE, MEDICAID ==
--- NOTE | 2017-06-26 19:40 | RADIOLOGY REPORT (SQ) ---
EXAM DESCRIPTION: VENOUS UNILATERAL LOWER COMPLETED DATE/TIME: 06/26/2017 7:26 pm REASON FOR STUDY: right lower leg COMPARISON: None. TECHNIQUE: Dynamic and static moran scale and color images acquired of the right leg venous system. S elected spectral images acquired with additional compression and augmentation maneuvers. The contrala teral common femoral vein and saphenofemoral junction were also imaged. Images stored on PACS. LIMITATIONS: None. FINDINGS: COMMON FEMORAL: Normal phasicity, compression and augmentation. No visualized echogenic ma terial on moran scale. No defects on color images. FEMORAL: Normal compression and augmentation. No visualized echogenic material on moran scale. No defe cts on color images. POPLITEAL: Normal compression, augmentation. No visualized echogenic material on moran scale. No defec ts on color images. CALF VESSELS: Normal compression, augmentation. No visualized echogenic material on moran scale. No de fects on color images. GSV and SSV: Normal compression, augmentation. No visualized echogenic material on moran scale. No def ects on color images. ANY DEEP VENOUS INSUFFICIENCY: No. ANY EVIDENCE OF POPLITEAL CYST: No. OTHER: No other significant finding. CONTRALATERAL COMMON FEMORAL VEIN AND SAPHENOFEMORAL JUNCTION: Normal phasicity, compression and augmentation. No visualized echogenic material on moran scale. No de fects on color images. IMPRESSION: NO EVIDENCE DVT OR SVT IN THE RIGHT LEG. COMMENT: Preliminary report was called by the technologist to the referring clinician's office at th e time of patient visit. TECHNICAL DOCUMENTATION: JOB ID: [id number] [employer]- All Rights Reserved Reading location - IP/workstation name: [email or web address]
--- NOTE | 2017-06-26 20:08 | ER Document Report ---
ED Extremity Problem, Lower - General Chief Complaint: Leg Pain Stated Complaint: RIGHT LEG PAIN Time Seen by Provider: 06/26/17 17:07 Mode of Arrival: Ambulatory Information source: Patient Notes: 62-year-old female presents to ED for bilateral lower extremity pain much worse on the right. She states that she has had knot behind her right calf. She states both legs hurt. She denies any injuries. TRAVEL OUTSIDE OF THE [place] IN LAST 30 DAYS: No - HPI Patient complains to provider of: Pain, Swelling Location: Leg, Thigh Occurred: Other - Over a month Onset/Duration: Gradual, Persistent Quality of pain: Sharp Severity: Severe Pain Level: 5 Recent injury: No Associated symptoms: Painful ambulation Exacerbated by: Hanging down, Movement, Walking Relieved by: Nothing - Related Data Allergies/Adverse Reactions: aspirin [Aspirin] Allergy (Mild, Verified 06/26/17 14:28) Hives ibuprofen [Ibuprofen] Allergy (Mild, Verified 06/26/17 14:28) nausea/vomiting metaxalone [From Skelaxin] Allergy (Mild, Verified 06/26/17 14:28) Hallucinations morphine [Morphine] Allergy (Mild, Verified 06/26/17 14:28) Hallucinations naproxen [From Naprosyn] Allergy (Mild, Verified 06/26/17 14:28) Dizziness oxycodone [Oxycodone] Allergy (Mild, Verified 06/26/17 14:28) Hallucinations oxycodone HCl [From Percocet] Allergy (Mild, Verified 06/26/17 14:28) Hallucinations Past Medical History - General Information source: Patient - Social History Smoking Status: Never Smoker Cigarette use (# per day): No Chew tobacco use (# tins/day): No Smoking Education Provided: No Frequency of alcohol use: None Drug Abuse: None Occupation: None Lives with: Parents Family History: Arthritis, CVA, DM, Hypertension, Thyroid Disfunction. denies: CAD, COPD, Malignancy Patient has suicidal ideation: No Patient has homicidal ideation: No - Past Medical History Cardiac Medical History: Reports: Hx Hypercholesterolemia, Hx Hypertension - medicated Pulmonary Medical History: Reports: Hx Asthma - medicated prn, Hx Bronchitis EENT Medical History: Reports: None Neurological Medical History: Reports: Hx Migraine, Hx Seizures Endocrine Medical History: Reports: Hx Hypothyroidism Renal/ Medical History: Reports: None Malignancy Medical History: Reports: None GI Medical History: Reports: Hx Colonoscopy, Hx Endoscopy Musculoskeltal Medical History: Reports Hx Arthritis Skin Medical History: Reports None Psychiatric Medical History: Reports: None Traumatic Medical History: Reports: None Infectious Medical History: Reports: None Past Surgical History: Reports: Hx Cholecystectomy - Immunizations Immunizations up to date: Yes Hx Diphtheria, Pertussis, Tetanus Vaccination: Yes Review of Systems - Review of Systems Notes: Constitutional: [PRESENT: as per HPI. ABSENT: chills, fever(s), headache(s), weight gain, weight loss] Eyes: [ABSENT: visual disturbances] Ears: [ABSENT: hearing changes] Cardiovascular: [ABSENT: chest pain, dyspnea on exertion, edema, orthropnea, palpitations] Respiratory: [ABSENT: cough, hemoptysis] Gastrointestinal: [ABSENT: abdominal pain, constipation, diarrhea, hematemesis, hematochezia, nausea, vomiting] Genitourinary: [ABSENT: dysuria, hematuria] Musculoskeletal: Tenderness to both legs more so to the right thigh and calf. Integumentary: [ABSENT: rash, wounds] Neurological: [ABSENT: abnormal gait, abnormal speech, confusion, dizziness, focal weakness, syncope] Psychiatric: [ABSENT: anxiety, depression, homicidal ideation, suicidal ideation ] Endocrine: [ABSENT: cold intolerance, heat intolerance, menstrual abnormalities , polydipsia, polyuria] Hematologic/Lymphatic: [ABSENT: easy bleeding, easy bruising, lymphadenopathy] Physical Exam - Vital signs Vitals: Temp Pulse Resp BP Pulse Ox 97.6 F 80 16 146/78 H 99 06/26/17 14:31 06/26/17 14:31 06/26/17 14:31 06/26/17 14:31 06/26/17 14:31 - Notes Notes: PHYSICAL EXAMINATION: GENERAL: Well-appearing, well-nourished and in no acute distress. HEAD: Atraumatic, normocephalic. EYES: Pupils equal round and reactive to light, extraocular movements intact, conjunctiva are normal. ENT: Nares patent, oropharynx clear without exudates. Moist mucous membranes. NECK: Normal range of motion, supple without lymphadenopathy LUNGS: Breath sounds clear to auscultation bilaterally and equal. No wheezes rales or rhonchi. HEART: Regular rate and rhythm without murmurs ABDOMEN: Soft, nontender, nondistended abdomen. No guarding, no rebound. No masses appreciated. Female : deferred Musculoskeletal: Normal range of motion, no pitting or edema. No cyanosis. Tenderness to bilateral thighs worse on the right than the left swelling to bilateral thighs. This is a morbidly obese 5 foot tall, 13 kilogram lady NEUROLOGICAL: Cranial nerves grossly intact. Normal speech, normal gait. Normal sensory, motor exams PSYCH: Normal mood, normal affect. SKIN: Warm, Dry, normal turgor, no rashes or lesions noted. - Extremities Left calf in cm: 32 Right calf in cm: 38 Course - Re-evaluation Re-evalutation: 06/27/17 03:00 Venous Doppler was discussed with patient it was negative. Patient was treated with ibuprofen and instructed to follow-up with orthopedics for her bilateral leg pain. - Vital Signs Vital signs: Temp Pulse Resp BP Pulse Ox 97.5 F 71 14 136/82 H 100 06/26/17 20:15 06/26/17 20:15 06/26/17 20:15 06/26/17 20:15 06/26/17 20:15 Discharge - Discharge Clinical Impression: Leg pain Qualifiers: Laterality: bilateral Qualified Code(s): M79.604 - Pain in right leg Condition: Stable Disposition: HOME, SELF-CARE Additional Instructions: Leg Pain, Nonspecific We did not find an obvious cause for your leg pain. There's no sign of blood clot, infection, or other serious disease. Possible causes of vague leg pain include muscle or joint inflammation, disc disease in the lower back, pressure on the nerves in the back, or reduced blood flow through the arteries of the leg. Rest the leg. Pain can be eased with an antiinflammatory pain medicine such as ibuprofen. If the pain involves a small area, a heating pad might help. Call the doctor or return if the leg becomes swollen, weak, discolored, or increasingly painful, or if you develop any other significant change in your health. Venous Doppler which is the test check in for a DVT is negative. You will need to follow-up with orthopedic and your primary doctor to have further testing done for any reason for your pain in your legs. Anti-Inflammatory Medication You have received a prescription for an antiinflammatory agent. This is an excellent, safe drug for pain control. In addition, it has potent antiinflammatory effects which are beneficial, especially in the treatment of injuries, arthritis, or tendonitis. It's best to take this medicine with food. Persons with ulcer disease or allergy to aspirin should notify their physician of this before taking this drug. Take the medication exactly as prescribed. Don't take additional doses unless instructed to do so by your doctor. If you develop wheezing, shortness of breath, hives, faintness, stomach pain, vomiting, or dark black stools, return for re-evaluation at once. Acetaminophen Acetaminophen may be taken for pain relief or fever control. It's much safer than aspirin, offering a wider range of "safe" dosages. It is safe during . Some brand names are Tylenol, Panadol, Datril, Anacin 3, Tempra, and Liquiprin. Acetaminophen can be repeated every four hours. The following are maximum recommended dosages: WEIGHT Dose Drops Elixir Chewable( 80mg) (LBS.) drprs=droppers tsp=teaspoon 6 40 mg .4 ml (1/2) 6-11 80 mg .8 ml (full) 1/2 tsp 1 tab 12-16 120 mg 1 1/2 drprs 3/4 tsp 1 1/2 tabs 17-23 160 mg 2 drprs 1 tsp 2 tabs 24-30 240 mg 3 drprs 1 1/2 tsp 3 tabs 30-35 320 mg 2 tsp 4 tabs 36-41 360 mg 2 1/4 tsp 4 1 /2 tabs 42-47 400 mg 2 1/2 tsp 5 tabs 48-53 480 mg 3 tsp 6 tabs 54-59 520 mg 3 1/4 tsp 6 1 /2 tabs 60-64 560 mg 3 1/2 tsp 7 tabs 65-70 600 mg 3 3/4 tsp 7 1 /2 tabs 71-76 640 mg 4 tsp 8 tabs 77-82 720 mg 4 1/2 tsp 9 tabs 83-88 800 mg 5 tsp 10 tabs >89 pounds or adults 650 mg to 900 mg Acetaminophen can be repeated every four hours. Maximum daily dose not to exceed 4000 mg. These maximum recommended dosages are slightly higher than the dosages written on the product container, but these dosages are very safe and well below the toxic dosage for acetaminophen. FOLLOW-UP CARE: If you have been referred to a physician for follow-up care, call the physician s office for an appointment as you were instructed or within the next two days. If you experience worsening or a significant change in your symptoms, notify the physician immediately or return to the Emergency Department at any time for re-evaluation. Forms: Elevated Blood Pressure Referrals: MARISABEL NEWTON PA-C [Primary Care Provider] - Follow up as needed MARIFER MENENDEZ MD [ACTIVE STAFF] - Follow up as needed
[2017-06-26 20:17] VITALS: BP 136/82
== END 2017-06-26 20:15 | disposition home or self-care (01) ==
LOC: ER 14:26
DX: M79.604 Pain in right leg (principal); M79.605 Pain in left leg; E66.01 Morbid (severe) obesity due to excess calories; Z68.42 Body mass index [BMI] 45.0-49.9, adult; I10 Essential (primary) hypertension; J45.909 Unspecified asthma, uncomplicated; Z88.6 Allergy status to analgesic agent; Z88.8 Allergy status to other drugs, medicaments and biological substances; Z88.5 Allergy status to narcotic agent
CPT/HCPCS: 93971; 99284